=== PATIENT | male | born 1985 | race Caucasian/White ===

== ENCOUNTER 2017-11-15 11:53 | Inpatient (IN) | payer OTHER, MEDICAID ==
--- NOTE | 2017-11-15 12:10 | EDPHY ---
H & P Source: Patient, RN notes reviewed ([facility]), Old records Exam Limitations: No limitations - Personal History Tetanus Vaccine Date: unable to assess - Medical/Surgical History Hx Asthma: No Hx Chronic Respiratory Disease: No Hx Diabetes: No Hx Cardiac Disease: No Hx Renal Disease: No Hx Cirrhosis: No Hx Alcoholism: No Hx HIV/AIDS: No Hx Splenectomy or Spleen Trauma: No Other PMH: schizophernia - Social History Smoking Status: Current every day smoker <Nayana Lenz - Last Filed: 11/15/17 14:06> <Teodoro Kyle - Last Filed: 11/16/17 07:55> Time Seen by Provider: 11/15/17 12:09 HPI/ROS: HPI: This is a 32-year-old male who presents with Chief Complaint: M1 hold Location: psych Quality: M1 hold Duration: today Signs and Symptoms:+ delusional, + paranoid, + auditory hallucinations, + visual hallucinations, + insomnia, + disorganized thought process Timing: Acute on chronic Severity: Severe Context: History of schizoaffective disorder and tobacco use. Prescribed Seroquel, Clozapine, Klonopin by Dr. anshul sneed at [facility]. He is brought in on M1 hold from [facility] as he is deemed to be gravely disabled due to psychosis and unable to meet his needs for basic survival. He is extremely agitated, total disorganization of speech and behavior, active auditory and visual hallucinations. Patient reports to me that he has lived as among for the majority of his life. He reports that he has a lot of hallucinations under both visual and auditory; mostly of rastafarian figures that tell him that he has a sinner to stay out of the black light and go to the white light. He admits to being off his medications for approximately 1-2 weeks. He denies suicidal ideation/homicidal ideation. He does admit to alcohol use on s Maria G and regular marijuana use. Denies any other recreational use. He has no prior medical history, surgical history and denies any chest pain, shortness of breath, abdominal pain, nausea, vomiting. Modifying Factors: None Comment: ROS: see HPI Constitutional: No fever, no chills, no weight loss Eyes: No blurred vision Respiratory: No shortness of breath, no cough Cardiovascular: No chest pain Gastrointestinal: No nausea, no vomiting, no diarrhea Genitourinary: No dysuria Extremities: No myalgias Neurologic: No weakness, no numbness Skin: No rashes Hematologic: No bruising, no bleeding MEDICAL/SURGICAL/SOCIAL HISTORY: Medical history: Schizoaffective disorder Surgical history: Denies Social history: Unemployed. CONSTITUTIONAL: Untidy, eccentric adult white male who smells heavily of body odor, awake and alert, no obvious distress HEENT: Atraumatic and normocephalic, PERRL, EOMI. Tympanic membranes clear. Oropharynx clear, no exudate and moist pink mucosa. Airway patent. No lymphadenopathy. No meningismus. Cardiovascular: Normal S1/S2, regular rate, regular rhythm, without murmur rub or gallop. PULMONARY/CHEST: Symmetrical and nontender. Clear to auscultation bilaterally. Good air movement. No accessory muscle usage. ABDOMEN: Soft, nondistended, nontender, no rebound, no guarding, no peritoneal signs, no masses or organomegaly. No CVAT. EXTREMITIES: 2/2 pulses, strength 5/5, no deformities, no clubbing, no cyanosis or edema. NEUROLOGICAL: no focal neuro deficits. GCS 15. SKIN: Warm and dry, no erythema. no rash. Good capillary refill. PSYCH: Poor eye contact, + flight of ideas, + tangential disorganized thought process, poor insight and judgment, + auditory and visual command hallucinations , no suicidal ideation with a plan, no homicidal ideation, paranoid, speech is rambling and nonsensical, alternate between mumbling and shouting. (Nayana Lenz) Constitutional: Initial Vital Signs Temperature (C) 36.6 C 11/15/17 12:22 Heart Rate 99 11/15/17 12:22 Respiratory Rate 20 11/15/17 12:22 Blood Pressure 134/98 H 11/15/17 12:22 O2 Sat (%) 92 11/15/17 12:22 O2 Delivery Mode Nasal Cannula O2 (L/minute) 2 Allergies/Adverse Reactions: No Known Allergies Allergy (Unverified 11/01/14 19:42) Home Medications: Medication Instructions Recorded cloZAPine [Clozaril (*)] 350 mg PO HS 11/15/17 clonazePAM [klonoPIN (*)] 0.5 - 1 mg PO BID PRN 11/15/17 Medical Decision Making <Nayana Lenz - Last Filed: 11/15/17 14:06> - Diagnostics Imaging: I viewed and interpreted images myself <Teodoro Kyle - Last Filed: 11/16/17 07:55> ED Course/Re-evaluation: Agree with M1 hold as patient has acute psychosis and is gravely disabled. Patient given home medications of clozapine, Seroquel. After 45 minutes in ER, patient had generalized tonic-clonic seizure and fell out of bed. Dr. Kyle assumed care of the patient (Nayana Lenz) Differential Diagnosis: Differential diagnosis includes but is not limited to medication noncompliance, psychosis, schizophrenia, schizoaffective disorder. (Nayana Lenz) Other Provider: PHYSICIAN DOCUMENTATION: The patient was evaluated and managed by the Physician Rug Layer and myself. I have reviewed the chart and agree with the findings and plan of care as documented. In addition, I examined the patient myself at 1230. History confirmed as schizoaffective disorder, patient just had a generalized tonic- clonic seizure and fell out of bed. Physical findings as follows: On my arrival the patient is nonverbal. He has a hematoma on the top of his head. Bilateral tongue abrasions. His medications include clozapine and Seroquel and Klonopin has been off them for unknown duration. [address] scanning ordered. Noncontrast head CT personally interpreted as negative for bleed or other abnormality. Re-examined at 1:27 p.m., tachycardic, 2nd mg IV Ativan ordered. Patient is still confused. Will admit to ICU for 24 observation and medical clearance from seizure pending psychiatric evaluation. Critical care time spent by me, Dr. Kyle, exclusively with the care of this patient was 20 minutes, exclusive of PA or NETWORK SUPPORT MANAGER time and exclusive of separate procedures. The organ system at risk was neurologic and I ordered multiple doses of IV benzodiazepines, diagnostic studies, hospitalist communications consultant to stabilize the patient and prevent worsening of the patient's condition. Wesly Carrasco [id number]. I am the secondary supervising physician. (Teodoro Kyle) - Data Points Laboratory Results: Laboratory Results 11/15/17 12:15 11/15/17 12:15 Medications Given: Clonazepam (Klonopin) 1 mg PO BID CRISTO Stop: 05/14/18 14:44 Last Admin: 11/15/17 21:45 Dose: 1 mg Lorazepam (Ativan Injection) 1 mg IVP Q4HRS PRN PRN Reason: Anxiety, Unable to Take PO Stop: 05/14/18 23:54 Last Admin: 11/16/17 00:11 Dose: 1 mg Nicotine (Nicoderm Cq) 21 mg TD DAILY CRISTO Stop: 05/14/18 23:44 Last Admin: 11/16/17 00:27 Dose: 21 mg Discontinued Medications Clozapine (Clozaril) 100 mg PO ONCE ONE Stop: 11/16/17 12:23 Last Admin: 11/15/17 14:19 Dose: 100 mg Clozapine (Clozaril) 250 mg PO ONCE ONE Stop: 11/15/17 22:01 Last Admin: 11/15/17 22:08 Dose: 250 mg Lactated Ringer's (Lr) 1,000 mls @ 500 mls/hr IV CONT CRISTO Stop: 11/15/17 16:29 Last Admin: 11/15/17 15:30 Dose: 1,000 mls Lorazepam (Ativan Injection) 1 mg IVP EDNOW ONE Stop: 11/15/17 12:43 Last Admin: 11/15/17 12:43 Dose: 1 mg Lorazepam (Ativan Injection) 1 mg IVP EDNOW ONE Stop: 11/15/17 13:27 Last Admin: 11/15/17 13:49 Dose: 1 mg Olanzapine (Zyprexa Im Injection) 10 mg IM ONCE ONE Stop: 11/16/17 00:25 Last Admin: 11/16/17 00:32 Dose: 10 mg Quetiapine Fumarate (Seroquel) 300 mg PO ONCE ONE Stop: 11/15/17 12:22 Last Admin: 11/15/17 14:19 Dose: 300 mg Departure <Nayana Lenz - Last Filed: 11/15/17 14:06> <Teodoro Kyle - Last Filed: 11/16/17 07:55> - Departure Disposition: [facility] Clinical Impression: Seizure Schizoaffective disorder Qualifiers: Schizoaffective disorder type: unspecified Qualified Code(s): F25.9 - Schizoaffective disorder, unspecified Condition: Fair
[2017-11-15] MEDS ORDERED: QUEtiapine FUMARATE 300 MG TAB PO ONE (12:21)
[2017-11-15 12:28] LABS: PLATELET COUNT 244 10^3/uL (150-400)
[2017-11-15] MEDS ORDERED: LORazepam 2 MG/ML INJ ONE (12:33)
[2017-11-15] MEDS ORDERED: LORazepam 2 MG/ML INJ IVP ONE ×2 (12:42→13:26)
[2017-11-15] MEDS ORDERED: ONDANSETRON DISINTEGRATING 4 MG TAB PO PRN (14:29)
[2017-11-15] MEDS ORDERED: ACETAMINOPHEN 325 MG TAB PO PRN (14:29)
[2017-11-15] MEDS ORDERED: ONDANSETRON 4 MG/2 ML VIAL IVP PRN (14:29)
[2017-11-15] MEDS ORDERED: LR 1,000 ML IV SCH (14:30)
--- NOTE | 2017-11-15 14:58 | GHP ---
[f rep st] HISTORY AND PHYSICAL DATE OF ADMISSION: 11/15/2017 CHIEF COMPLAINT: Schizophrenic and seizure. HISTORY OF PRESENT ILLNESS: This is a 32-year-old man who was initially sent in from Dr. Sanchez's office for disorganized thinking. He has a history of schizophrenia, tells me he has been off his medication since about Vida. It he is able to provide a semi coherent history though he is clearly quite disorganized. He was initially placed on an M1, transferred here. In the emergency department, he had a reported tonic colonic seizure. He had a post- ictal period and bit his tongue. He says that he has never had a seizure before , does not use any drugs other than marijuana and does not drink any alcohol. It is unclear if he has had a traumatic brain injury in the past. He tells me at some point, he probably hit his head skateboarding. PAST MEDICAL/SURGICAL HISTORY: 1. Paranoid schizophrenia. 2. Broken ankle. 3. Hernia surgery. MEDICATIONS: Please see medication reconciliation. ALLERGIES: No known drug allergies. SOCIAL HISTORY: He lives by himself. He uses marijuana. He does not drink or use any other drugs. FAMILY HISTORY: No seizures. REVIEW OF SYSTEMS: A 10-point review of systems is conducted and is negative except per HPI. PHYSICAL EXAMINATION: VITAL SIGNS: Blood pressure 117/47, heart rate 115 respiration rate 18, saturating 97% on 2 L. GENERAL: Mr. Ventura is a pleasant man who is somewhat anxious appearing. HEENT: Shows him to have a hematoma on the frontal aspect of his scalp. CARDIOVASCULAR: Cardiovascular exam shows him to be tachycardic. There are no murmurs, rubs, or gallops. PULMONARY: Lungs clear to auscultation bilaterally. He is not in any respiratory distress. ABDOMEN: Abdominal exam is soft, nontender, nondistended. SKIN: Exam shows multiple small excoriations and abrasions. GENITOURINARY: Exam shows no Bird. NEUROLOGIC: Exam shows him to be alert and oriented x3. He does have some disorganized thinking. He has a nonfocal neurologic exam. PSYCHIATRIC: Exam shows him to be anxious. LABORATORY STUDIES: White count is 18.12. Basic metabolic panel shows a bicarbonate of 21, with an anion gap is 17. Normal kidney function. Tox screen is negative for alcohol. DATA: 1. I discussed this with both Nargis Lenz, as well as Dr. Napier in the emergency department. We will admit to the ACU. 2. Head CT scan shows a normal CT of the brain with some left frontal scalp swelling. There is no fracture or hematoma. 3. Cervical spine CT scan shows no fracture. IMPRESSION AND PLAN: A 32-year-old man with schizophrenia and possible seizure. 1. Seizure: He has been off Klonopin though does not have a previous history of a seizure disorder. He did have a reported postictal period and tongue bite. For now, will place him back on his Klonopin and not start any other antiepileptics. We will give him 1 dose now, then scheduled 1 mg p.o. twice daily which is at the higher end of his previous dose. If he has another seizure, would consider other antiepileptics, would be cautious about using Keppra given his psychiatric disease. Potentially, gabapentin would be a reasonable choice for him. We will place a Neurology consult for assistance with this. 2. Active psychosis: Currently on an M1 hold. When he is medically cleared, he will need a TLC evaluation. 3. History of schizophrenia: We will continue his home Clozaril when his medications have been reconciled. /[id number]/MODL MTDD
[2017-11-15] MEDS ORDERED: clonazePAM 1 MG TAB ONE (15:00)
[2017-11-15] MEDS: clonazePAM 1 MG TAB PO SCH ×2 (15:01→21:45)
[2017-11-15] MEDS ORDERED: cloZAPine 100 MG TAB PO ONE (22:00)
[2017-11-15] MEDS ORDERED: LORazepam 2 MG/ML INJ IVP PRN (23:55)
[2017-11-16] MEDS ORDERED: OLANZapine 10 MG/2 ML VIAL IM ONE (00:24)
[2017-11-16] MEDS: NICOTINE 21 MG/24 HR PATCH TD SCH ×3 (00:27→19:57)
[2017-11-16] MEDS: clonazePAM 1 MG TAB PO SCH ×2 (08:57→19:56)
--- NOTE | 2017-11-16 10:17 | NEUROPROG ---
Assessment: [id number] Neurology Consult Note CC: Schizophrenia, seizure HPI: On 11/15/17 the patient was sent by his psychiatrist (Dr. Sanchez) for disorganized thinking to the [facility] ER (pt has schizophrenia). It was reported the patient had stopped his medications around sabrina in 2017 (medications included clonazepam). He was in the [facility] ER and noted to have a generalized seizure. He recovered and denied any history of seizures. He denied drug/alcohol use. He may have had a traumatic brain injury in the past. Head CT was unremarkable for intracranial issues in the ER. I initially saw the patient 11/16/17. He had been restarted on clonazepam and clozaril for his psychiatric issues. He denied any seizures since admission to ICU. He denied any complaints. PMHx: paranoid schizophrenia, broken ankle, hernia surgery, seizure on 11/15/17 SHx: lives alone FHx: no seizures ROS: No acute fever, total vision loss, active severe chest pain, respiratory failure, total body severe rash, total bowel/bladder incontinence, psychosis, active seizures, or active bleeding O: VS reviewed General: Alert Eyes: Fundoscopic exam not able to visualize optic disks CV: Heart RRR, no murmur, no carotid bruit Lungs: Clear to auscultation bilaterally, no rhonci or rales Neuro: - Mental: . Oriented x person/place/date . concentration appears normal . speech fluency/comprehension normal . memory appears normal . fund of knowledge appear intact - Cranial Nerves: . II: PERRL, VFFTC . III/IV/: EOMI, no nystagmus, normal smooth pursuits, no Ptosis . V: facial sensation intact to LT . VII: face symmetric to eye closure and smile . VIII: hearing intact to conversation . IX/X: uvula raises symmetrically . XI: SCM 5/5 B/L strength . XII: tongue protrudes midline w/nl strength - Motor: . Tone: normal tone in all 4 extrem . Strength: no pronator drift, strength 5/5 throughout (B/L delt, bic, tri, hand caustic preparer, hf/he, df/pf) - Reflexes: B/L bic/BR/patella 2/4 - Sensory: all 4 extrem intact to light touch - Coord: [id number] wnl, CHERI wnl, [id number] wnl - Gait: deferred Labs: 11/15/17- Ethyl alcohol negative Rads: 11/15/17- Head CT: normal CT, L frontal scalp swelling, no skull fx or bleeding intracranially (I personally visualized the images on 11/16/17) Assessment: 1. Schizophrenia with medication non-compliance late October 2017 and resulting psychosis: Pt now restarted on home medications. 2. Single generalized seizure 11/15/17 in setting of abrupt clonazepam discontinuation: Normal neurologic exam 11/16/[address] 11/15/17. Seizure seems most likely to have been provoked by abrupt clonazepam discontinuation. Clonazepam restarted and patient seizure free since then. Plan: - Agree with restarting clonazepam 1 mg bid - No further inpatient workup needed at this time as seizure appears be provoked - Agree with adding gabapentin 300 mg TID if he has any further seizures - Seizure precautions (to include no driving) until seizure free for 90 days - Outpatient f/u with neurology service 1-4 weeks after hospital discharge, we can consider brain MRI and EEG at that time Neurology will sign off but please call for any questions or any change in neurologic status. Objective: Vital Signs Temp Pulse Resp BP Pulse Ox 36.5 C 98 21 H 111/53 L 94 11/15/17 16:55 11/16/17 06:00 11/16/17 06:00 11/16/17 06:00 11/16/17 06:00 11/15/17 11/16/17 11/17/17 05:59 05:59 05:59 Intake Total 2250 Balance 2250 Allergies/Adverse Reactions: No Known Allergies Allergy (Unverified 11/01/14 19:42)
[2017-11-16] MEDS ORDERED: cloZAPine 100 MG TAB PO ONE (12:22)
--- NOTE | 2017-11-16 13:36 | HOSPPROG ---
Hospitalist Progress Note Assessment/Plan: Seizure - likely 2/2 bzd w/d. Stable back on home klonopin dose. No further seizures. Schizophrenia with psychosis - pt is medically clear and needs inpt psych. Discussed with Juan from [facility] who will contact [facility] for evaluation / placement Full code Dispo - cont ICU / M1 hold Subjective: Pt lying in bed with head at foot of bed. He appears anxious, fidgety. No more seizures. Objective: Vital Signs Temp Pulse Resp BP Pulse Ox 36.5 C 98 21 H 111/53 L 94 11/15/17 16:55 11/16/17 06:00 11/16/17 06:00 11/16/17 06:00 11/16/17 06:00 11/15/17 11/16/17 11/17/17 05:59 05:59 05:59 Intake Total 2250 Balance 2250 - Physical Exam Constitutional: no apparent distress Eyes: PERRL Ears, Nose, Mouth, Throat: moist mucous membranes Cardiovascular: regular rate and rhythym Respiratory: no respiratory distress Skin: warm Musculoskeletal: full muscle strength Psychiatric: anxious, agitated, poor insight ICD10 Worksheet Patient Problems: Problems Problem Status Onset Schizoaffective disorder Acute Seizure Acute Psychosis Acute
--- NOTE | 2017-11-16 15:47 | ASMTCASEMG ---
Living Arrangements What is your living Answers: Alone arrangement? Who do you live with? Type Of Residence What kind of residence do Answers: Apartment you live in? Discharge Plan Comments Coordination Status Comments Notes: Pt is a 32 y/o man admitted for a suspected seizure. Pt was initially admitted to the emergency room on a M-1 hold. Pt has a diagnosis of paranoid schizophrenia. Once medically cleared pt will need a TLC evaluation. CM available for d/c needs. Plan: Possible inpatient psych hospitalization Date Signed: 11/16/2017 03:47 PM Electronically Signed By:JOÃO Staples
[2017-11-16] MEDS: cloZAPine 100 MG TAB PO SCH (19:56)
[2017-11-17] MEDS: clonazePAM 1 MG TAB PO SCH ×2 (08:48→21:08)
--- NOTE | 2017-11-17 09:14 | PDMN ---
Medical Necessity Medical necessity: change to IP; los>2mn for schizophrenia with psychosis, for continued ICU level of care for M1 hold; awaiting psych eval and placement; hx sz DOA r/t bzd withdrawal; per order and progress note 11/16/17
[2017-11-17 11:14] LABS: PLATELET COUNT 232 10^3/uL (150-400)
--- NOTE | 2017-11-17 17:07 | ASMTCMCOM ---
CM Note CM Note Notes: Spoke with patient who was upset about possibly losing his apartment and understanding the need for hospitalization. Contacted Doris ([facility]) and she agreed to email patient's therapist, Marcus and make sure his caseworkers are managing this issue. Patient was comforted to know this. CM available for consult. Date Signed: 11/17/2017 05:07 PM Electronically Signed By:Tataina Lopez LCSW
--- NOTE | 2017-11-17 19:57 | HOSPPROG ---
Hospitalist Progress Note Assessment/Plan: Seizure - likely 2/2 bzd w/d. Stable back on home klonopin dose. No further seizures. Schizophrenia with psychosis - pt is medically clear and needs inpt psych. Discussed with [facility] and they are working on placement. Full code Dispo - cont ICU / M1 hold Objective: Vital Signs Temp Pulse Resp BP Pulse Ox 36.6 C 83 18 123/71 H 98 11/17/17 08:00 11/17/17 08:00 11/17/17 08:00 11/17/17 08:00 11/17/17 08:00 Laboratory Results 11/17/17 11:02 11/16/17 11/17/17 11/18/17 05:59 05:59 05:59 Intake Total 900 Output Total 800 Balance 100 ICD10 Worksheet Patient Problems: Problems Problem Status Onset Schizoaffective disorder Acute Seizure Acute Psychosis Acute
[2017-11-17] MEDS: cloZAPine 100 MG TAB PO SCH (21:08)
[2017-11-17 21:17] VITALS: BP 126/76; PULSE 78; RESP 16; TEMP 98.6; O2SAT 95
--- NOTE | 2017-11-17 21:30 | GDS ---
[f rep st] DISCHARGE SUMMARY DISCHARGE DIAGNOSES: 1. Seizure secondary to benzodiazepine withdrawal. 2. Schizophrenia with active psychosis. CONSULTANTS: Dr. Huber Mendez, Neurology. HISTORY OF DETAILS: For details, please see dictated history and physical dated November 15, 2017. In brief, the patient is a 32-year-old male with a history of schizophrenia, who was sent to the emerge ncy department from his psychiatrist's office for disorganized thinking. He has a history of schizop hrenia and apparently been off his medications for the past 10 days. In the emergency department, he reportedly had a tonic-clonic seizure and was admitted to the ICU on an M1 hold for further manageme nt. HOSPITAL COURSE: The patient was admitted to intensive care unit on an M1 hold. He was restarted on his Klonopin 1 mg twice daily. He had no further seizures. Neurology consult was obtained and agre ed this was likely related to benzodiazepine withdrawal, and he will be maintained on his regular out patient Klonopin dose. He was also continued on his Clozaril for his psychotic features in the setti ng of schizophrenia. He was medically cleared from a seizure perspective and evaluated by [facility]. The plan is for transfer to an inpatient psychiatric facility for mental health stabil ization. DISPOSITION: The patient will be discharged to inpatient psychiatric facility [facility]. DISCHARGE MEDICATIONS: Please see [facility] How To for completed updated outpatient medication list. For no w, he will be continued on Clozaril 350 mg p.o. q.h.s. and Klonopin 1 mg p.o. b.i.d. FOLLOWUP: Dr. Sanchez, Psychiatry. /[id number]/MODL
[2017-11-17] MEDS: NICOTINE 21 MG/24 HR PATCH TD SCH (22:29)
== END 2017-11-17 22:22 | DRG 101 ==
LOC: EDBD → EDUNIT# → INTOOBSV 13:56 → EEVIPCON 13:56 → F2N 16:12 → OBSVTOIN 11-16 18:29
PROVIDERS: ADMIT Student in an Organized Health Care Education/Training Program; ATTEND Student in an Organized Health Care Education/Training Program
DX: R56.9 Unspecified convulsions (principal); T42.4X6A Underdosing of benzodiazepines, initial encounter; Z91.14 Patient's other noncompliance with medication regimen; F20.0 Paranoid schizophrenia
CPT/HCPCS: 80305; 82947-QW; 85025-PO; 92610-GN; 96374; G0378; G0480; G8996-GN-CI; G8997-GN-CI; G8998-GN-CI; J2060

== ENCOUNTER 2019-03-01 07:53 | Emergency (ER) | payer OTHER, MEDICAID ==
--- NOTE | 2019-03-01 08:27 | EDPHY ---
H & P Time Seen by Provider: 03/01/19 08:24 HPI/ROS: CHIEF COMPLAINT: Chest pain, anxiety HISTORY OF PRESENT ILLNESS: Patient is a 34-year-old male with a history of schizophrenia who presents emergency department with chest pain and anxiety. Patient states his symptoms have been going on for few weeks. Patient reports that he thinks this chest pain is secondary to yoga. He has been doing yoga exercises which caused him to have chest pain radiating to his "3rd eye."His pain early worse when performing the yoga movements. He has no pain at rest. The patient states his chest pain is feeling better since arriving in the emergency department. He has had no leg pain or swelling. No cough or shortness of breath. No recent travel. Patient does smoke marijuana and cigarettes regularly but denies other drug use. The patient also states that for the past 3 weeks he has been having intermittent episodes of anxiety. He feels a sense of doom that comes on suddenly. He feels fearful. At this time he feels better. He has no complaints of anxiety or fear in the emergency department. He denies any thoughts of wanting to harm self or others. REVIEW OF SYSTEMS: 10 systems were reveiwed and are negative with the exception of the elements mentioned in the history of present illness. Past Medical/Surgical History: Includes schizophrenia Past surgical history: Ankle surgery, hernia repair Social history: Patient smokes marijuana and cigarettes. He denies other drugs or alcohol. Smoking Status: Current every day smoker Physical Exam: Vitals noted GENERAL: No acute distress, alert. HEENT: Eyes normal to inspection, normal pharynx, no signs of dehydration. NECK: Normal, supple. RESPIRATORY: Clear to auscultation bilaterally, no rales, rhonchi or wheezing. CVS: Regular rate and rhythm, no rubs, murmurs, or gallops. ABDOMEN: Soft, nontender, nondistended, no organomegaly. BACK: Normal to inspection, no CVA tenderness. SKIN: Dirty hands. Normal color, no rash, warm, dry. No pallor. EXTREMITIES: No pedal edema, no calf tenderness, no Homans sign or cords, no joint swelling. NEURO/PSYCH: Alert and oriented, flat affect, normal motor sensory exam. Constitutional: Initial Vital Signs Temperature (C) 36.4 C 03/01/19 07:59 Heart Rate 89 03/01/19 07:59 Respiratory Rate 16 03/01/19 07:59 Blood Pressure 139/84 H 03/01/19 07:59 O2 Sat (%) 98 03/01/19 07:59 O2 Delivery Mode Room Air Allergies/Adverse Reactions: No Known Allergies Allergy (Verified 03/01/19 07:59) Home Medications: Medication Instructions Recorded cloZAPine [Clozaril (*)] 11/15/17 Depakote 03/01/19 Medical Decision Making ED Course/Re-evaluation: In the emergency department I discussed possible etiologies with the patient. I answered all his questions. EKG shows normal sinus rhythm, normal rate, normal axis, normal intervals. There are no ST or T-wave abnormalities. EKG is normal as interpreted by me. I discussed the EKG findings with the patient. At this time I do not feel he needs laboratory studies. Patient is followed by Dr. Edith Hernandez. He will call to make a follow-up appointment. He was given warnings prior to leaving. Differential Diagnosis: My differential includes but is not limited to ACS, acute VA, dissection, aneurysm, pulmonary embolus, pneumonia, GERD, hiatal hernia, anxiety, schizophrenia Departure - Departure Disposition: Home, Routine, Self-Care Clinical Impression: Anxiety Chest pain Qualifiers: Chest pain type: unspecified Qualified Code(s): R07.9 - Chest pain, unspecified Condition: Good Instructions: Chest Pain (ED), Anxiety (ED) Additional Instructions: Return with increasing chest pain, shortness of breath, fever or any other concerns. Referrals: Edith Franklin, PAC [Physician Field Contact Person] - 3-4 days, if not improved
[2019-03-01 08:41] VITALS: BP 133/85
--- NOTE | 2019-03-01 14:05 | CPEKG ---
Test Reason : OPEN Blood Pressure : / mmHG Vent. Rate : 096 BPM Atrial Rate : 096 BPM P-R Int : 136 ms QRS Dur : 100 ms QT Int : 351 ms P-R-T Axes : 053 085 059 degrees QTc Int : 444 ms Sinus rhythm Confirmed by Cindy Doe ([id number]) on 03/01/2019 2:05:08 PM Referred By: PHYSICIAN ED Confirmed By:Cindy Doe
== END 2019-03-01 08:34 | disposition home or self-care (01) ==
LOC: CED 07:53
DX: F41.9 Anxiety disorder, unspecified (principal); R07.9 Chest pain, unspecified; F17.200 Nicotine dependence, unspecified, uncomplicated
CPT/HCPCS: 99283-ER